=== PATIENT | female | born 1995 | race Hispanic/Latino ===

== ENCOUNTER 2017-07-27 02:55 | Emergency (ER) | payer SELFPAY ==
[2017-07-27 05:11] LABS: APPEARANCE,URINE Cloudy (CLEAR); BILIRUBIN,URINE Negative (NEGATIVE); COLOR,URINE Yellow (YELLOW); GLUCOSE, URINE (UA) Negative (NEGATIVE); KETONES,URINE Negative (NEGATIVE); LEUKOCYTE ESTERASE ,URINE Moderate (NEGATIVE); NITRATE,URINE Negative (NEGATIVE); OCCULT BLOOD,URINE Negative (NEGATIVE); PROTEIN,URINE Negative (NEGATIVE); UROBILINOGEN,URINE 0.2 mg/dL (0.2-1.0)
[2017-07-27 05:19] LABS: AMORPHOUS SEDIMENT,UR Few /LPF (None Seen); BACTERIA,URINE Few /HPF (None Seen); MUCUS,URINE Few LPF (None Seen); RBC,URINE 0-1 /HPF (0-1)
[2017-07-27] MEDS ORDERED: SUCRALFATE 1 GM TABLET ONE (06:06)
[2017-07-27 06:19] LABS: POTASSIUM 3.5 mmol/L (3.5-5.1)
[2017-07-27 06:25] LABS: ALBUMIN 4.3 g/dL (3.5-5.0); BILIRUBIN,TOTAL 0.3 mg/dL (0.2-1.0); TOTAL PROTEIN, SERUM 8.8 g/dL (6.0-8.3)
[2017-07-27 06:28] LABS: BASOPHILS % (AUTO) 0.5 % (0.0-5.0); EOSINOPHILS % (AUTO) 0.1 % (0.0-8.0); HEMATOCRIT 39.5 % (36-48); MEAN CORPUSCULAR HGB CONC 33.4 g/dL (32.0-36.0); MEAN CORPUSCULAR VOLUME 86.8 fL (79-99); MONOCYTES % (AUTO) 4.7 % (3.0-13.0); NEUTROPHILS % (AUTO) 79.7 % (40.0-77.0); PLATELET COUNT (AUTO) 335 K/uL (130-400); RED BLOOD CELL COUNT(AUTO) 4.54 MIL/uL (4.00-5.50); RED CELL DISTRIBUTION WIDTH 13.8 % (11.0-15.5); WHITE BLOOD COUNT (AUTO) 17.4 K/uL (4.8-10.8)
== END 2017-07-27 08:27 | disposition home or self-care (01) ==
LOC: EDH 02:55
DX: K29.00 Acute gastritis without bleeding (principal)
CPT/HCPCS: 36415; 80053; 81001; 85025; 86677

== ENCOUNTER 2022-03-04 08:55 | Day surgery (SDC) | payer OTHER ==
[2022-02-28 08:29] LABS: INR 0.98 (0.85-1.15); PROTHROMBIN TIME 10.7 SEC (9.6-11.6)
[2022-02-28 08:30] LABS: PARTIAL THROMBOPLASTIN TIME 31.2 SEC (26.3-35.5)
[2022-03-01 11:55] VITALS: BP 140/79
[2022-03-04] VITALS (18 sets, daily range): BP systolic 113–137; BP diastolic 71–85
[~2022-03-04] VITALS: Ht 152.4 cm; Wt 78.5 kg
[~2022-03-04 08:55] MED LIST: BUPIVACAINE/PF 0.5% 30ML VIAL ONE; CEFAZOLIN SODIUM 1 GM VIAL IVP SCH
[2022-03-04] MEDS ORDERED: LACTATED RINGERS 1000ML 1,000 ML IV ONE (09:25)
[2022-03-04] MEDS ORDERED: ONDANSETRON 4MG INJ ONE (10:20)
[2022-03-04] MEDS ORDERED: DEXAMETHASONE SOD PHOSPHATE 10MG/ML 1ML VIAL ONE (10:20)
[2022-03-04] MEDS ORDERED: MIDAZOLAM HCL 1 MG/ML 2ML VIAL ONE (10:20)
[2022-03-04] MEDS ORDERED: ROCURONIUM 10MG/1ML SYR 10 MG/ML ML ONE (10:20)
[2022-03-04] MEDS ORDERED: GLYCOPYRROLATE 1 MG/5 ML SYRINGE ONE (10:20)
[2022-03-04] MEDS ORDERED: FENTANYL CITRATE PF 50 MCG/1 ML 2ML VIAL ONE (10:20)
[2022-03-04] MEDS ORDERED: NEOSTIGMINE 5MG/5ML SYR IV ONE (10:20)
[2022-03-04] MEDS ORDERED: PROPOFOL 10 MG/ML 20ML VIAL IV ONE (10:20)
[2022-03-04] MEDS ORDERED: SUCCINYLCHOLINE 200MG/10ML SYR ONE (10:20)
[2022-03-04] MEDS ORDERED: LIDOCAINE PF 100MG/5ML (2%) SYRINGE 5ML ONE (10:20)
[2022-03-04] MEDS ORDERED: CEFAZOLIN SODIUM 2 GM VIAL IVP ONE (11:02)
[2022-03-04] MEDS ORDERED: MEPERIDINE-PF 25 MG/ML SYG ONE ×2 (12:14→12:25)
== END 2022-03-04 14:15 | disposition home or self-care (01) ==
LOC: DAH 08:55
PROVIDERS: ATTEND Surgery
DX: K80.64 Calculus of gallbladder and bile duct with chronic cholecystitis without obstruction (principal); Z20.822 Contact with and (suspected) exposure to COVID-19; K82.8 Other specified diseases of gallbladder; Z82.49 Family history of ischemic heart disease and other diseases of the circulatory system; Z83.3 Family history of diabetes mellitus; Z79.899 Other long term (current) drug therapy; Z79.01 Long term (current) use of anticoagulants
CPT/HCPCS: 84703; 85610; 85730; 87426; 36415; 47562; 81025; A6260; A4663; J7030; J7120; J3010; J0690 ×2; J0330; J3490 ×2; J1100; J2710; J2001; J2250; J2704; J2405; J2175 ×2; G0168; C1769 ×3; A4649 ×2; A4215; A4223; A4222; A4221; A4600